=== PATIENT | male | born 1970 | race Caucasian/White ===

== ENCOUNTER 2019-06-07 23:04 | Inpatient (IN) ==
[2019-06-08 00:06] LABS: Basophils # 0.1 10*3/uL (0.0-0.2); Basophils % 1.1 % (0.0-0.8); Eosinophils # 0.2 10*3/uL (0.0-0.87); Eosinophils % 2.4 % (0.00-10.9); Hemoglobin 14.5 GM/DL (14.0-18.0); Immature Granulocytes % 0.4 %; Immature Granulocytes Absolute 0.03 #; Lymphocytes # 3.2 10*3/uL (1.4-4.0); Lymphocytes % 44.6 % (21.2-54.2); Mean Corpuscular HGB Conc 33.7 GM/DL (32-36); Mean Corpuscular Volume 99.1 FL (87-102); Mean Platelet Volume 10.1 FL (9.6-12.0); Monocytes % 10.8 % (1.7-12.7); Neutrophils % 40.7 % (38.7-73.9); Platelet Count 201 T/CUMM (130-400); Red Blood Count 4.34 MC/CUMM (3.8-5.5); Red Cell Distribution Width 13.2 % (9.3-17.3); White Blood Count 7.2 T/CUMM (4-12)
[2019-06-08 00:27] LABS: Alanine Aminotransferase 71 U/L (16-61); Albumin 3.4 G/DL (3.4-5.0); Alkaline Phosphatase 101 U/L (45-117); Aspartate Amino Transferase 37 U/L (0-37); Bilirubin,Total < 0.39 MG/DL (0.2-1.0); Blood Urea Nitrogen 10 MG/DL (7-18); Estimated Glom Filtration Rate 79 ML/MIN; Glucose 92 MG/DL (74-106); Osmolality,Calculated 277.4 MOS/KG (273-304); Total Protein 6.5 G/DL (6.4-8.3)
[2019-06-08] MEDS ORDERED: ALUM/MAG/SIMETH/LIDO VISC 1:1 30 ML BOTTLE PO STA (00:29)
[2019-06-08] MEDS ORDERED: cloNIDine 0.1 MG TABLET PO STA ×2 (00:38→01:28)
[2019-06-08] MEDS: niCARdipine INJ 25 MG in SODIUM CHLORIDE 0.9% 240 ML IV PRN ×2 (03:14→09:44)
[2019-06-08] MEDS ORDERED: NICOTINE 21 MG/24 HR PATCH TRANSDERM PRN (05:45)
[2019-06-08] MEDS ORDERED: ALBUTEROL 2.5 MG/3 ML NEB RESP TX PRN (05:45)
[2019-06-08] MEDS ORDERED: ONDANSETRON 4 MG/2 ML VIAL IV PRN (05:45)
[2019-06-08] MEDS ORDERED: DOCUSATE SODIUM 100 MG CAPSULE PO PRN (05:45)
[2019-06-08] MEDS ORDERED: PANTOPRAZOLE 40 MG TABLET PO SCH (09:00)
[2019-06-08] MEDS: METOPROLOL TARTRATE 50 MG TABLET PO SCH ×2 (09:00→20:40)
[2019-06-08] MEDS: ACETAMINOPHEN 325 MG TABLET PO PRN (09:00)
[2019-06-08] MEDS: ENOXAPARIN 40 MG/0.4 ML SYRINGE SUBCUT SCH (09:00)
[2019-06-08] MEDS: QUEtiapine 100 MG TABLET PO SCH (09:02)
[2019-06-08 09:52] LABS: Risk Ratio 2.98; Thyroid Stimulating Hormone 3.51 uIU/ml (0.358-3.74)
[2019-06-08] MEDS: busPIRone 15 MG TABLET PO SCH (20:39)
[2019-06-08] MEDS: PANTOPRAZOLE 40 MG TABLET PO SCH (20:39)
[2019-06-08] MEDS: GABAPENTIN 300 MG CAPSULE PO SCH (20:39)
[2019-06-08] MEDS ORDERED: QUEtiapine 100 MG TABLET PO SCH (21:00)
[2019-06-09] MEDS ORDERED: hydrALAZINE 20 MG/1 ML VIAL IV PRN (00:33)
[2019-06-09 04:20] VITALS: BP 122/81
[2019-06-09] MEDS: ACETAMINOPHEN 325 MG TABLET PO PRN ×2 (04:24→08:16)
[2019-06-09 04:55] LABS: Basophils # 0.1 10*3/uL (0.0-0.2); Basophils % 0.9 % (0.0-0.8); Eosinophils # 0.2 10*3/uL (0.0-0.87); Eosinophils % 2.5 % (0.00-10.9); Hematocrit 44.7 VOL% (42.0-52.0); Hemoglobin 15.2 GM/DL (14.0-18.0); Immature Granulocytes % 0.4 %; Immature Granulocytes Absolute 0.03 #; Lymphocytes # 2.5 10*3/uL (1.4-4.0); Lymphocytes % 33.1 % (21.2-54.2); Mean Corpuscular Volume 96.8 FL (87-102); Mean Platelet Volume 10.3 FL (9.6-12.0); Monocytes % 6.5 % (1.7-12.7); Neutrophils % 56.6 % (38.7-73.9); Platelet Count 225 T/CUMM (130-400); Red Blood Count 4.62 MC/CUMM (3.8-5.5); Red Cell Distribution Width 13.2 % (9.3-17.3); White Blood Count 7.5 T/CUMM (4-12)
[2019-06-09 05:08] LABS: Calcium 8.6 MG/DL (8.5-10.1)
[2019-06-09] MEDS: busPIRone 15 MG TABLET PO SCH ×2 (08:15→14:37)
[2019-06-09] MEDS: ENOXAPARIN 40 MG/0.4 ML SYRINGE SUBCUT SCH (08:15)
[2019-06-09] MEDS: GABAPENTIN 300 MG CAPSULE PO SCH ×2 (08:16→14:37)
[2019-06-09] MEDS: QUEtiapine 100 MG TABLET PO SCH (08:16)
[2019-06-09] MEDS: METOPROLOL TARTRATE 50 MG TABLET PO SCH (08:16)
[2019-06-09] MEDS: PANTOPRAZOLE 40 MG TABLET PO SCH (08:17)
[2019-06-09] MEDS ORDERED: CITALOPRAM 40 MG TABLET PO SCH (09:00)
[2019-06-09] MEDS ORDERED: hydroCHLOROthiazide 25 MG TABLET PO SCH (09:00)
[2019-06-09] MEDS ORDERED: amLODIPine 10 MG TABLET PO SCH (09:00)
[2019-06-09] MEDS ORDERED: KETOROLAC 30 MG/1 ML VIAL IM ONE (14:48)
== END 2019-06-09 17:00 | DRG 305 ==
LOC: EDBD → EDUNIT# → N.EDINP 23:04 → N.ED 23:04 → N.CC 06-08 04:56 → SUATTDRO 06-08 09:30 → N.5E 06-08 19:45
PROVIDERS: ADMIT Family Medicine; ATTEND Internal Medicine